=== PATIENT | female | born 1945 | race Caucasian/White ===

== ENCOUNTER 2017-11-21 06:22 | Day surgery (SDC) | payer MEDICARE, OTHER ==
[~2017-11-21] VITALS: Ht 162.6 cm; Wt 89.0 kg
[~2017-11-21 06:22] MED LIST: ACET325 PO; AMIO200 PO; ASCORBIC ACID500 MG PO; ASPI325 PO; ATOR40TA PO; Aspir 8181 MG PO; DRON400T; ELIQUIS2.5 MG PO; ENOX80I SC; FURO40 PO; LEVSOD50 PO; METO50 PO; POTCHL20ER PO; WARF3 PO; Zofran Odt8 MG SL
[2017-11-21] MEDS ORDERED: WARF6 PO (06:57)
[2017-11-21] MEDS ORDERED: DRON400T PO (07:32)
[2018-10-09] MEDS ORDERED: DIGOX250 MCG PO (11:26)
[2018-10-09] MEDS ORDERED: FURO40 PO (11:28)
[2018-10-09] MEDS ORDERED: K-Dur 20 meq T20 MEQ PO (11:30)
[2018-10-09] MEDS ORDERED: Ferrous Sulfat325 M2 PO (11:31)
== END 2017-11-21 08:40 | disposition home or self-care (01) ==
LOC: MHTC 06:22
PROC: 5A2204Z Restoration of Cardiac Rhythm, Single (ICD-10-PCS; principal; 2017-11-21)
DX: I48.4 Atypical atrial flutter (principal); I48.92 Unspecified atrial flutter; Z95.2 Presence of prosthetic heart valve; Z87.891 Personal history of nicotine dependence
CPT/HCPCS: 92960; 93005; 93010; J2250; J7030

== ENCOUNTER → 2018-04-04 | Outpatient (CLI) | payer MEDICARE, OTHER ==
[~2018-04-04] MED LIST changes: +DRON400T PO; +WARF6 PO
== END ==
LOC: LAB SHORT 13:35 → LAB EV 13:35
DX: R35.0 Frequency of micturition (principal)
CPT/HCPCS: 87077; 87086; 87186

== ENCOUNTER 2018-12-05 11:07 | Day surgery (SDC) | payer MEDICARE, OTHER ==
[~2018-12-05] VITALS: Ht 162.6 cm; Wt 88.0 kg
[~2018-12-05 11:07] MED LIST changes: +ASCO500 PO; +BISA5EC PO; +DIGOX250 MCG PO; +FERROUS SULFATE PO; +Ferrous Sulfat325 M2 PO; +K-Dur 20 meq T20 MEQ PO; +METO100ER PO; +MIRALAX17 GM; +WARF1 PO
--- NOTE | 2018-12-05 11:47 | NUR ---
History, Chart, Medications and Allergies reviewed before start of procedure. Lungs clear T/O to Auscultation. Patient confirms NPO status and agrees with scheduled surgery. Patient states colon prep results clear. Patient States Post-Procedure ride home has been arranged.
--- NOTE | 2018-12-05 12:09 | NUR ---
12/05/18 1209 Héctor Kaur 3-LEAD EKG REVIEWED WITH PHYSICIAN PRIOR TO START OF PROCEDURE.PATIENT CONFIRMS NPO STATUS AND AGREES WITH SCHEDULED PROCEDURE.History, Chart, Medications and Allergies reviewed before start of procedure. MONITOR INTACT WITH CONTINUOUS PULSE OXIMETRY AND INTERMITTENT BP. O2 VIA N/C INTACT THROUGHOUT SEDATION/PROCEDURE.
--- NOTE | 2018-12-05 13:46 | NUR ---
Discharge instructions reviewed with patient. Patient verbalizes understanding. Copy given to patient to take home. Discharged via wheelchair to private car for ride home.
== END 2018-12-05 13:40 | disposition home or self-care (01) ==
LOC: ORSCMMR 11:07 → SURS 11:07 → ORSCMMR 13:40 → ORD 14:00 → ORSCMMR 14:00
PROVIDERS: Internal Medicine Gastroenterology
PROC: 0DJD8ZZ Inspection of Lower Intestinal Tract, Via Natural or Artificial Opening Endoscopic (ICD-10-PCS; principal; 2018-12-05 12:00)
PROC: 0DBK8ZX Excision of Ascending Colon, Via Natural or Artificial Opening Endoscopic, Diagnostic (ICD-10-PCS; principal; 2018-12-05 12:00)
DX: D50.9 Iron deficiency anemia, unspecified (principal); D12.2 Benign neoplasm of ascending colon; K29.80 Duodenitis without bleeding; K29.70 Gastritis, unspecified, without bleeding; K57.30 Diverticulosis of large intestine without perforation or abscess without bleeding; E03.9 Hypothyroidism, unspecified; E78.5 Hyperlipidemia, unspecified; R13.10 Dysphagia, unspecified; K22.2 Esophageal obstruction; Z68.33 Body mass index [BMI] 33.0-33.9, adult; E66.9 Obesity, unspecified; Z79.899 Other long term (current) drug therapy; Z79.01 Long term (current) use of anticoagulants
CPT/HCPCS: 88305; J2405; J3010; J7120

== ENCOUNTER 2021-02-01 07:58 | Day surgery (SDC) | payer MEDICARE, OTHER ==
[~2021-02-01 07:58] MED LIST changes: -METO100ER PO; -WARF1 PO
--- NOTE | 2021-02-01 09:09 | NUR ---
DR KELLY IN ROOM TO CONSENT PT.
--- NOTE | 2021-02-01 10:03 | NUR ---
DR HARVEY IN ROOM TO SEE PT. CALL LIGHT IN REACH.
--- NOTE | 2021-02-01 10:33 | NUR ---
DISCHARGE INSTRUCTIONS REVIEWED ALL QUESTIONS ANSWERED. PT DRANK SIPS OF WATER WITH NO ASPIRATION.
--- NOTE | 2021-02-01 10:43 | NUR ---
20 G IV DISCONTINUED FROM RIGHT WRIST WITH INTACT CANNULA. PT ESCORTED OUT VIA WHEELCHAIR ESCORT.
== END 2021-02-01 22:52 | disposition home or self-care (01) ==
LOC: MHTC 07:58
DX: T82.01XA Breakdown (mechanical) of heart valve prosthesis, initial encounter (principal); T82.857A Stenosis of other cardiac prosthetic devices, implants and grafts, initial encounter; E78.5 Hyperlipidemia, unspecified; E03.9 Hypothyroidism, unspecified; R93.89 Abnormal findings on diagnostic imaging of other specified body structures; Z79.01 Long term (current) use of anticoagulants; Z88.8 Allergy status to other drugs, medicaments and biological substances; Y83.8 Other surgical procedures as the cause of abnormal reaction of the patient, or of later complication, without mention of misadventure at the time of the procedure; Z95.2 Presence of prosthetic heart valve
CPT/HCPCS: 76376; 93312; 93321; 93325; A9270; J2704; J7030

== ENCOUNTER 2021-03-29 06:47 | Day surgery (SDC) | payer MEDICARE, OTHER ==
[~2021-03-29] VITALS: Ht 162.6 cm; Wt 89.8 kg
--- NOTE | 2021-03-29 08:18 | NUR ---
DR MARTIN IN RECOVERY ROOM TO CONSULT WITH PT.
--- NOTE | 2021-03-29 09:27 | NUR ---
PT RETURNED TO RECOVERY ROOM IN RECLINER. RIGHT RADIAL TR BAND SITE SOFT WITH NO HEMATOMA, NO PULSATILE BLEEDING AND WRIST BOARD IN PLACE. PT DENIES CHEST PAIN. PT C/O RIGHT WRIST "SORENESS". SPO2 PROBE ON RIGHT INDEX FINGER WITH SPO2 AT 95%; CAP REFILL TO RIGHT FINGER < 3 SEC. CALL LIGHT IN REACH. PT DRINKING COFFEE.
--- NOTE | 2021-03-29 10:42 | NUR ---
0945 ASSUMED CARE OF PATIENT. TR BAND IN PLACE TO THE RIGHT RADIAL, STA MONITOR READING 97%. GOOD CAPILLARY REFILL. ALLOWED TO COME TO THE BEDSIDE. VVS. MONITOR IN USE. CALL LIGHT IN REACH. REFUSED BREAKFAST. GIVEN WATER ADN COFFEE.
--- NOTE | 2021-03-29 10:53 | NUR ---
DR MARTIN AT THE BEDSIDE AND SPOKE WITH THE AND REGARDING HER CATH RESULTS.
--- NOTE | 2021-03-29 11:05 | NUR ---
BEGAN TAKING AIR FROM THE TR BAND. CONTINUE TO MONITOR.
--- NOTE | 2021-03-29 11:13 | NUR ---
CONTINUE TO REMOVE AIR FROM THE TR BAND. VVS. AT THE BEDSIDE. VVS.
--- NOTE | 2021-03-29 11:42 | NUR ---
PATIENT UP OUT OF THE CHAIR TO THE RESTROOM. VOIDED AND BACK TO BED. OFF MONITOR AND ALLOWED TO DRESS. ASSISTING. PATIENT INSTRUCTED NOT TO USE THE RIGHT WRIST.
--- NOTE | 2021-03-29 12:29 | NUR ---
PATIENT IS BACK TO THE RECLINER, DRESSED SELF WITH HUSBANDS ASSISTANCE. PIV REMOVED AND PRESSURE DRESSING APPLIED. TR BAND REMOVED AND SITE CLEANED. REVIEWED DISCHARGE INSTRUCTIONS AND BANDAGE PLACED TO THE RIGHT RADIL SITE AND WHITE ARMBOARD RE-APPLIED. PATIENT VERBALIZES UNDERSTANDING OF NOT PLACING ANY ACCESSIVE PRESSURE TO THE RIGHT WRIST AREA. WILL WEAR THE ARMBOARD FOR 48 HOURS. COPIES OF DISCAHRGE INSTRUCTIONS GIVEN TO THE PATIENT AND A FOLLOW UP APPOINTMENT WITH DR. HARVEY. PATIENT VERBALIZED UNDERSTANDING OF INSTRUCTIONS. ALL BELONGINGS GATHERED AND PATIENT WHEELCHAIRED TO THE [facility] WHERE GOT THE CAR AND PATIENT DISCHARGED HOME.
== END 2021-03-29 12:30 | disposition home or self-care (01) ==
LOC: MHTC 06:47
DX: I05.9 Rheumatic mitral valve disease, unspecified (principal); I48.91 Unspecified atrial fibrillation; I35.0 Nonrheumatic aortic (valve) stenosis; E78.5 Hyperlipidemia, unspecified; E03.9 Hypothyroidism, unspecified; Z95.4 Presence of other heart-valve replacement
CPT/HCPCS: 76937; 93005; 93010; 93454; 99152; 99153; C1769; C1894; J1644; J2250; J3010; J7030; Q9967

== ENCOUNTER 2021-05-20 12:08 | Inpatient (IN) | payer MEDICARE, OTHER ==
[~2021-05-20] VITALS: Ht 162.6 cm; Wt 88.4 kg
[2021-05-20 13:55] LABS: BASOPHILS ABSOLUTE AUTO 0.03 K/mm3 (0.00-0.23); BASOPHILS PERCENT AUTO 0 % (0-2); EOSINOPHILS PERCENT AUTO 0 % (0-6); Hematocrit 35.7 % (33.0-51.0); Hemoglobin 11.9 g/dL (11.5-16.0); IMMATURE GRAN ABSOLUTE AUTO 0.13 K/mm3 (0.00-0.10); IMMATURE GRAN PERCENT AUTO 1 % (0-1); LYMPHOCYTES ABSOLUTE AUTO 0.27 K/mm3 (0.84-5.20); LYMPHOCYTES PERCENT AUTO 2 % (21-46); MONOCYTES ABSOLUTE AUTO 0.86 K/mm3 (0.16-1.47); MONOCYTES PERCENT AUTO 6 % (4-13); Mean Corpuscular HGB 36.6 pg (26.0-34.0); Mean Corpuscular HGB Conc 33.3 g/dL (31.5-36.5); Mean Corpuscular Volume 110 fL (80-100); Mean Platelet Volume 10.1 fL (9.1-12.4); NEUTROPHILS ABSOLUTE AUTO 13.97 K/mm3 (1.96-9.15); NEUTROPHILS PERCENT AUTO 92 % (41-73); Platelet Count 201 K/mm3 (150-400); RDW Standard Deviation 51.9 fL (35.1-46.3); Red Blood Cell Count 3.25 M/mm3 (3.80-5.20); White Blood Cell Count 15.26 K/mm3 (4.00-11.30)
[2021-05-20 14:46] LABS: Alanine Aminotransfer (ALT/SGP 28 U/L (12-78); Albumin, Blood 3.6 g/dL (3.4-5.0); Albumin/Globulin Ratio 0.9 (0.8-1.8); Alk Phos 103 U/L (50-136); Anion Gap 8 mmol/L (6-16); Aspartate Aminotrans (AST/SGOT 29 U/L (12-37); Bilirubin, Total 1.3 mg/dL (0.1-1.0); Blood Urea Nitrogen 13 mg/dL (8-24); Bun/Creatinine Ratio 13.4 (12.0-20.0); CO2, Blood 21 mmol/L (21-32); Calcium, Blood 9.3 mg/dL (8.5-10.1); Chloride, Blood 107 mmol/L (98-108); Creatinine, Blood 0.97 mg/dL (0.40-1.00); Globulin, Blood 3.9 g/dL (2.2-4.0); Glomerular Filtration Rate 56 (60-); Glucose, Blood 126 mg/dL (70-99); Potassium, Blood 4.2 mmol/L (3.5-5.5); Sodium, Blood 136 mmol/L (136-145); Thyroid Stimulating Hormone 0.383 uIU/mL (0.360-4.800); Total Protein, Blood 7.5 g/dL (6.4-8.2); Troponin I <0.015 ng/mL (0.000-0.040)
[2021-05-20 14:54] LABS: International Normalized Ratio 1.79; Prothrombin Time Results 18.7 Sec (9.7-11.5)
[2021-05-20 15:24] LABS: SARS-Cov-2 (COVID-19) PCR, MMC NEGATIVE (NEGATIVE)
[2021-05-20] MEDS ORDERED: LIPITOR80 MG PO (15:51)
[2021-05-20] MEDS ORDERED: EUTHYROX50 MCG PO (15:52)
[2021-05-20] MEDS ORDERED: METO50ER PO (15:52)
[2021-05-20] MEDS ORDERED: WARF3 PO (15:54)
[2021-05-20] MEDS ORDERED: Aspir 8181 MG PO (15:54)
[2021-05-20 18:29] LABS: International Normalized Ratio 1.82
[2021-05-20 18:50] LABS: Anion Gap 8 mmol/L (6-16); Blood Urea Nitrogen 13 mg/dL (8-24); Bun/Creatinine Ratio 15.3 (12.0-20.0); CO2, Blood 22 mmol/L (21-32); Calcium, Blood 8.8 mg/dL (8.5-10.1); Chloride, Blood 109 mmol/L (98-108); Creatinine, Blood 0.85 mg/dL (0.40-1.00); Glomerular Filtration Rate >60 (60-); Glucose, Blood 123 mg/dL (70-99); Potassium, Blood 4.5 mmol/L (3.5-5.5); Sodium, Blood 139 mmol/L (136-145)
--- NOTE | 2021-05-20 19:38 | NUR ---
SUMMARY PT SITTING ON EDGE OF BED, REPORTS "FEELING MUCH BETTER". ARRIVED TO UNIT FROM ED, TRANSFERRED W/SBA TO BED FROM [facility]. TACHYPNIC UPON ARRIVAL AND 02 SATS WERE IN 80S. PLACED ON 2L NC, SATS IMPROVED TO MID 90S. PT BEGAN HAVING INCREASING SOB, STATING "I CAN'T BREATHE" ALTHOUGH SATS WERE IN 90S. LUNGS SOUNDED DIM AND HR 145. OBTAINED ORDERS AND JEFFREY Kolb RN. ADMINISTERED METOPROLOL AND LASIX PER ORDERS. PT DOES REPORT HAD FALL "A FEW WEEKS AGO". EDUCATED ON IMPORTANCE OF CALLING BEFORE GETTING UP TO MAINTAIN SAFETY. VERBALIZED UNDERSTANDING. CALL LIGHT IN REACH. REPORT GIVEN TO ONCOMING SHIFT.
--- NOTE | 2021-05-21 01:02 | NUR ---
PATIENT ALERT AND ORIENTED X4. TERRI IN ROOM WITH PATIENT AT BEGINNING OF SHIFT. HR A.FIB IN THE 130s @1920, METOPROLOL AND LASIX WAS GIVEN @1855, PT WAS A.FIB 90s-110 FOR ABOUT 30 MINUTES @1940, THEN RETURNED TO A.FIB 130s-140s. FIRST DOSE OF DIGOXIN WAS GIVEN AND PO METOPROLOL, SEE EMAR. @2250- PT STARTED DRY HEAVING, MEDICATED WITH ZOFRAN. PT STATES SHE FEELS "THE WORST SHE HAS EVER FELT IN HER LIFE". CALLED HOSPITALIST AND AND GAVE ANOTHER DOSE OF METOPROLOL. NO CHANGES IN HR. OXYGEN REQUIREMENTS INCREASED FROM 2L VIA NC TO 3-4L, SATS >90%. @0020-CALLED DR. VAZQUEZ REGARDING HR, ORDERS TO TRANSFER TO ICU AND START ESMOLOL. @0048- REPORT GIVEN TO MALLORY WILEY. PT TRANSFERRED TO ICU. CALLED TERRI AND LEFT A MESSAGE.
--- NOTE | 2021-05-21 01:30 | NUR ---
0050- PT TRANSFERRED TO ICU 01 VIA BED WITH 2 RN'S AT BEDSIDE. PT VERY DYSPNEIC WITH RR 30'S-40'S. DENIES ANY CHEST PAIN. C/O HAVING LOWER BACK PAIN. LS VERY DIMINISHED T/O WITH VERY SHALLOW BREATHING. BIOX 94% ON 4L N/C. HEART SOUNDS S1 AND S2 AUSCULTATED WITH MONIOTR SHOWING AFLUTTER WITH HR 140. 20G IV LFA VERY PAINFUL WHEN FLUSHED; IV D/C'D. IV JEFFERY S/L. NEW IV RFA 20G STATRTED WITH ESMOLOL STARTED AT 50MCG/KG/MIN. 1+ PITTING EDEMA IN BILAT LE'S; R MORE PAINFUL THAN L. SKIN PALE, COOL AND DRY. TEMP 99.6. 0130- ESMOLOL INCREASED TO 100MCG/KG/MIN.
[2021-05-21 04:09] LABS: BASOPHILS ABSOLUTE AUTO 0.03 K/mm3 (0.00-0.23); BASOPHILS PERCENT AUTO 0 % (0-2); EOSINOPHILS PERCENT AUTO 0 % (0-6); Hemoglobin 10.1 g/dL (11.5-16.0); IMMATURE GRAN ABSOLUTE AUTO 0.18 K/mm3 (0.00-0.10); IMMATURE GRAN PERCENT AUTO 1 % (0-1); LYMPHOCYTES ABSOLUTE AUTO 0.39 K/mm3 (0.84-5.20); LYMPHOCYTES PERCENT AUTO 3 % (21-46); MONOCYTES ABSOLUTE AUTO 0.44 K/mm3 (0.16-1.47); MONOCYTES PERCENT AUTO 3 % (4-13); Mean Corpuscular HGB 35.1 pg (26.0-34.0); Mean Corpuscular HGB Conc 32.6 g/dL (31.5-36.5); Mean Corpuscular Volume 108 fL (80-100); NEUTROPHILS ABSOLUTE AUTO 13.27 K/mm3 (1.96-9.15); NEUTROPHILS PERCENT AUTO 93 % (41-73); Platelet Count 151 K/mm3 (150-400); RDW Coefficient Variation 13.1 % (11.7-14.2); RDW Standard Deviation 51.6 fL (35.1-46.3); Red Blood Cell Count 2.88 M/mm3 (3.80-5.20); White Blood Cell Count 14.31 K/mm3 (4.00-11.30)
[2021-05-21 04:24] LABS: International Normalized Ratio 2.14
[2021-05-21 04:38] LABS: Albumin, Blood 3.1 g/dL (3.4-5.0); Albumin/Globulin Ratio 0.9 (0.8-1.8); Bun/Creatinine Ratio 13.2 (12.0-20.0); Calcium, Blood 8.1 mg/dL (8.5-10.1); Creatinine, Blood 1.29 mg/dL (0.40-1.00); Globulin, Blood 3.4 g/dL (2.2-4.0); Potassium, Blood 4.1 mmol/L (3.5-5.5); Total Protein, Blood 6.5 g/dL (6.4-8.2)
[2021-05-21 04:56] LABS: Prothrombin Time Results 22.1 Sec (9.7-11.5)
--- NOTE | 2021-05-21 10:00 | NUR ---
[place] of Care/KIM/Cardioversion: Care assumed at 0700hr. Patient alert and oriented x4, sitting up in bed with at bedside. Patient denies any pain/discomfort. VSS, spO2-985 on 4L/NC. Patient denies dyspnea/SOB, but appears SOB while talking, comfortable at rest. Heart rhythm shows A-flutter with 2:1 conduction, BP stable. Esmolol gtt placed on stand-by on NOC shift. Peripheral IV's x2 patent and intact. At approx 0830hr, patient heart rhythm converted to A-fibb RVR. Patient also became increased in SOB, and c/o rt chest pain 01/13, BP remained stable. EKG obtained and call placed to Dr. Jackson, who quickly came to bedside. Dr. Jackson then instructed to continue with/set-up for KIM and cardioversion. RT Wily and apartment maintenance technician Barbara to bedside along with this RN and Aury sam RN. Time out called at 0850. Per Dr. Jackson, 1mg Versed, 50mcg Fentanyl given at 0856. KIM probe passed at 0900hr, scope removed at 0911hr, patient tolerated KIM without difficulty. Then instructed to proceed with electrical cardioversion. 1mg versed, 25mcg fentanyl given at 0913. Synchronized 200j cardioversion given at 0914. Patient then had 6 second pause, followed by sinus rhythm in the 70's, BP stable. Patient continued to sleep after the procedure, for approx 1hr. Patient now awake/alert, and denies any chest pain/discomfort. Respirations decreased and now appears comfortable at rest. Received plan from Dr. Jackson to transfer patient to [facility], for concern for vegetation on her mitral valvle. Awaiting bed assignment at [facility] at this time. Will continue to monitor.
--- NOTE | 2021-05-21 13:04 | NUR ---
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 AG, PT WILL MOST LIKELY BE TRANSFERRED TO [place] BY CARDIOLOGY. SHE WILL MAKE HERSELF AVAILABLE TO HELP WITH THAT TRANSFER IF NEEDED. -BALTA
--- NOTE | 2021-05-21 17:59 | NUR ---
Shift Summary: See "[place]" note r/t KIM and cardioversion. Patient remained stable throughout remainder of shift. Heart rhythm remains NSR in the 70's, BP stable. Patient remains asymptomatic, denies chest pain or dyspnea/SOB. C/o headache effectively managed with prn tylenol. Peripheral IV's x2 remain patent and intact. Up to toilet in room to void without difficulty. Contacted [facility] this afternoon, informed there are still no beds available, but that patient is top priority for transfer. Spoke with Dr. Jakcson to inform him of call to transfer center, plan to continue to hold/treat patient at this facility until bed becomes available. Spoke with Dr. Waldron this afternoon, received new orders for repeat blood cultures, and vanco (per pharmacy) r/t treatment of endocarditis. at bedside. Patient calm and states to be comfortable. Will continue to monitor until report to NOC shift RN.
--- NOTE | 2021-05-22 04:55 | NUR ---
SHIFT SUMMARY PATIENT HAS SLEPT WELL THRU NIGHT. HAS COMPLAINED A COUPLE TIMES OF "STOMACH UPSET," AT FIRST DESCRIBED NAUSEA WITHOUT ANY PAIN IN HER LOWED ABDOMEN, ALMOST LIKE STOMACH WAS TURNING OVER, ALMOST NEEDING TO VOMIT, RELIEVED WITH ZOFRAN, SITTING UP, AND GUIDED BREATHING EXERCISES. LATER ON PT DESCRIBED DULL PAIN IN LOWER ABDOMEN, ALMOST TO PELVIS, RELIEVED WITH FENTANYL. NO FURTHER COMPLAINTS. VSS. ASSESSMENT IS CHARTED. WILL CONTINUE TO MONITOR.
[2021-05-22 06:17] LABS: International Normalized Ratio 3.4; Prothrombin Time Results 34.3 Sec (9.7-11.5)
[2021-05-22 06:28] LABS: Vancomycin, Trough 13.9 ug/mL (5.0-10.0)
--- NOTE | 2021-05-22 07:58 | NUR ---
AM NOTE... ASSUMED CARE OF PT AT 0700. PT IS A&Ox4 AND SBA IN THE ROOM. PT WAS ADMITTED FOR AFIB W/RVR AND FOUND TO HAVE POSSIBLE VEGITATION AND ENDOCARDITIS. PT ALSO HAS POSITIVE BLOOD CULTURES OF GM + COCCI IN CHAINS ON THE SECOND SET OF BLOOD CULTURES AND DIPLOCOCCI ON THE FIRST SET. PT DENIES ANY CHEST PAIN/PRESSURE. PT IS IN NSR IN THE 60'S. BP SOFT BUT STABLE. PT IS ON 2L NC WITH O2 SATS >94%, PT BECOMES SLIGHTLY DYSPNIC WITH ACTIVITY. PT HAS 1+ PITTING EDEMA TO HER BLE. L/S CLEAR T/O. RR EVEN AND UNLABORED WHILE RESTING. PT IS CONT OF URINE AND STOOL AND A SBA TO THE BCS/TOILET. PT HAS COBRA TRANSFER TO [facility] PENDING AN AVAILABLE BED. DR. HART CLIP LOADING MACHINE FEEDER AT THE BEDSIDE FOR ASSESSMENT. PLAN OF CARE IS TO CONTINUE THE IV ANTIBIOTICS AND WAIT FOR TRANSFER. CALL LIGHT IN REACH WILL CONTINUE TO MONITOR.
[2021-05-22 08:33] LABS: Hematocrit 27.9 % (33.0-51.0); Hemoglobin 9.4 g/dL (11.5-16.0); Mean Corpuscular HGB 37.6 pg (26.0-34.0); Mean Corpuscular HGB Conc 33.7 g/dL (31.5-36.5); Mean Corpuscular Volume 112 fL (80-100); Platelet Count 113 K/mm3 (150-400); RDW Standard Deviation 51.4 fL (35.1-46.3); White Blood Cell Count 8.31 K/mm3 (4.00-11.30)
[2021-05-22 08:43] LABS: Albumin, Blood 2.9 g/dL (3.4-5.0); Albumin/Globulin Ratio 0.8 (0.8-1.8); Bilirubin, Total 0.6 mg/dL (0.1-1.0); Calcium, Blood 8.2 mg/dL (8.5-10.1); Creatinine, Blood 1.2 mg/dL (0.40-1.00); Globulin, Blood 3.7 g/dL (2.2-4.0); Potassium, Blood 4.4 mmol/L (3.5-5.5); Total Protein, Blood 6.6 g/dL (6.4-8.2)
[2021-05-22 08:53] LABS: BAND PERCENT MAN 5 % (0-8); BASOPHILS ABSOLUTE MAN 0.08 K/mm3 (0.00-0.23); BASOPHILS PERCENT MAN 1 % (0-2); EOSINOPHILS PERCENT MAN 0 % (0-6); LYMPHOCYTES ABSOLUTE MAN 0.83 K/mm3 (0.84-5.20); LYMPHOCYTES PERCENT MAN 10 % (21-46); MONOCYTES ABSOLUTE MAN 0.41 K/mm3 (0.16-1.47); MONOCYTES PERCENT MAN 5 % (4-13); NEUTROPHILS ABSOLUTE MAN 6.98 K/mm3 (1.96-9.15); SEG NEUTROPHILS PERCENT MAN 79 % (41-73); TOTAL CELLS COUNTED 100
--- NOTE | 2021-05-22 13:03 | NUR ---
PT UPDATE/TRANSFER... PT IS TRANSFERING TO [facility]. REPORT WAS CALLED TO BLUE [facility]LEY. PT IS TO GO BY AMBULANCE. ALL OF PT'S BELONGINGS WERE TAKEN BY THE PT'S TERRI. PT'S VS STABLE AT THIS TIME. PT DENIES ANY CHEST PAIN/PRESSURE N/V OR SOB. PT IS IN NSR IN THE 60'S. WILL CONTINUE TO MONITOR UNTIL PT LEAVES THE UNIT.
== END 2021-05-22 13:15 | disposition short-term general hospital (02) | DRG 308 ==
LOC: ER 12:08 → PCU 12:09 → ICUE 16:36 → PCU 17:38 → ICUE 05-21 00:48
PROVIDERS: Emergency Medicine; Family Medicine; Internal Medicine Cardiovascular Disease; Internal Medicine Gastroenterology; ADMIT Family Medicine
PROC: 5A2204Z Restoration of Cardiac Rhythm, Single (ICD-10-PCS; principal; 2021-05-21)
DX: I48.91 Unspecified atrial fibrillation (principal); I33.0 Acute and subacute infective endocarditis; T82.6XXA Infection and inflammatory reaction due to cardiac valve prosthesis, initial encounter; R78.81 Bacteremia; I48.92 Unspecified atrial flutter; I44.7 Left bundle-branch block, unspecified; Z20.822 Contact with and (suspected) exposure to COVID-19; B95.5 Unspecified streptococcus as the cause of diseases classified elsewhere; I10 Essential (primary) hypertension; E03.9 Hypothyroidism, unspecified; I07.1 Rheumatic tricuspid insufficiency; Z95.3 Presence of xenogenic heart valve; Z88.8 Allergy status to other drugs, medicaments and biological substances; Z79.899 Other long term (current) drug therapy; Z79.01 Long term (current) use of anticoagulants; Z87.891 Personal history of nicotine dependence
CPT/HCPCS: 36415; 71045; 80048; 80053; 80202; 83605; 83735; 83880; 84443; 84484; 85025; 85610; 87040; 87077; 87186; 92960; 93005; 93010; 93312; 93325; 94660; 94762; 96374; 96375; 99285-25; A9270; J0153; J0696; J1160; J1650; J1940; J2250; J2405; J3010; J3370; J7030; J7050; U0004

== ENCOUNTER 2021-06-03 02:03 | Day surgery (SDC) | payer MEDICARE, OTHER ==
[~2021-06-03 02:03] MED LIST changes: +EUTHYROX50 MCG PO; +LIPITOR80 MG PO; +METO50ER PO
[2021-06-03] MEDS ORDERED: FUROSEMIDE20 MG PO (11:31)
[2021-06-03] MEDS ORDERED: CEFTRIAXONE2 G7 (11:32)
[2021-06-03] MEDS ORDERED: Ampicillin Sodiu2 G1 IV (11:32)
[2021-06-03 12:03] LABS: Hematocrit 27.2 % (33.0-51.0); Hemoglobin 8.8 g/dL (11.5-16.0); Mean Corpuscular HGB 33.7 pg (26.0-34.0); Mean Corpuscular HGB Conc 32.4 g/dL (31.5-36.5); Mean Corpuscular Volume 104 fL (80-100); Mean Platelet Volume 9.5 fL (9.1-12.4); Platelet Count 273 K/mm3 (150-400); RDW Coefficient Variation 13.3 % (11.7-14.2); Red Blood Cell Count 2.61 M/mm3 (3.80-5.20); White Blood Cell Count 5.57 K/mm3 (4.00-11.30)
[2021-06-03 12:14] LABS: Alanine Aminotransfer (ALT/SGP 15 U/L (12-78); Albumin, Blood 2.8 g/dL (3.4-5.0); Albumin/Globulin Ratio 0.7 (0.8-1.8); Alk Phos 108 U/L (50-136); Anion Gap 6 mmol/L (6-16); Aspartate Aminotrans (AST/SGOT 21 U/L (12-37); Bilirubin, Total 0.5 mg/dL (0.1-1.0); Blood Urea Nitrogen 9 mg/dL (8-24); Bun/Creatinine Ratio 10.5 (12.0-20.0); CO2, Blood 25 mmol/L (21-32); Calcium, Blood 9.1 mg/dL (8.5-10.1); Chloride, Blood 108 mmol/L (98-108); Creatinine, Blood 0.86 mg/dL (0.40-1.00); Globulin, Blood 4.2 g/dL (2.2-4.0); Glomerular Filtration Rate >60 (60-); Glucose, Blood 98 mg/dL (70-99); Potassium, Blood 3.4 mmol/L (3.5-5.5); Sodium, Blood 139 mmol/L (136-145)
== END 2021-06-03 11:36 | disposition home or self-care (01) ==
LOC: ATC 02:03
PROVIDERS: Hospitalist
DX: R78.81 Bacteremia (principal); B95.2 Enterococcus as the cause of diseases classified elsewhere
CPT/HCPCS: 36592; 80053; 85027

== ENCOUNTER 2021-06-10 02:11 | Day surgery (SDC) | payer MEDICARE, OTHER ==
[~2021-06-10 02:11] MED LIST changes: +Ampicillin Sodiu2 G1 IV; +CEFTRIAXONE2 G7; +FUROSEMIDE20 MG PO
[2021-06-10 12:33] LABS: BASOPHILS ABSOLUTE AUTO 0.06 K/mm3 (0.00-0.23); BASOPHILS PERCENT AUTO 1 % (0-2); EOSINOPHILS ABSOLUTE AUTO 0.16 K/mm3 (0.00-0.68); EOSINOPHILS PERCENT AUTO 3 % (0-6); Hematocrit 27.1 % (33.0-51.0); Hemoglobin 8.8 g/dL (11.5-16.0); IMMATURE GRAN ABSOLUTE AUTO 0.02 K/mm3 (0.00-0.10); IMMATURE GRAN PERCENT AUTO 0 % (0-1); LYMPHOCYTES ABSOLUTE AUTO 0.95 K/mm3 (0.84-5.20); LYMPHOCYTES PERCENT AUTO 19 % (21-46); MONOCYTES ABSOLUTE AUTO 0.57 K/mm3 (0.16-1.47); MONOCYTES PERCENT AUTO 12 % (4-13); Mean Corpuscular HGB 34.4 pg (26.0-34.0); Mean Corpuscular HGB Conc 32.5 g/dL (31.5-36.5); Mean Corpuscular Volume 106 fL (80-100); Mean Platelet Volume 9.5 fL (9.1-12.4); NEUTROPHILS ABSOLUTE AUTO 3.15 K/mm3 (1.96-9.15); NEUTROPHILS PERCENT AUTO 64 % (41-73); Platelet Count 251 K/mm3 (150-400); RDW Coefficient Variation 13.8 % (11.7-14.2); RDW Standard Deviation 51.8 fL (35.1-46.3); Red Blood Cell Count 2.56 M/mm3 (3.80-5.20); White Blood Cell Count 4.91 K/mm3 (4.00-11.30)
[2021-06-10 13:16] LABS: Albumin, Blood 2.8 g/dL (3.4-5.0); Albumin/Globulin Ratio 0.6 (0.8-1.8); Bilirubin, Total 0.3 mg/dL (0.1-1.0); Bun/Creatinine Ratio 10.3 (12.0-20.0); Calcium, Blood 9.3 mg/dL (8.5-10.1); Creatinine, Blood 0.97 mg/dL (0.40-1.00); Globulin, Blood 4.5 g/dL (2.2-4.0); Potassium, Blood 3.8 mmol/L (3.5-5.5); Total Protein, Blood 7.3 g/dL (6.4-8.2)
== END 2021-06-10 11:55 | disposition home or self-care (01) ==
LOC: ATC 02:11
DX: R78.81 Bacteremia (principal); B95.2 Enterococcus as the cause of diseases classified elsewhere; I33.0 Acute and subacute infective endocarditis; Z95.2 Presence of prosthetic heart valve; Z88.8 Allergy status to other drugs, medicaments and biological substances; Z91.048 Other nonmedicinal substance allergy status; Z95.828 Presence of other vascular implants and grafts
CPT/HCPCS: 36592; 80053; 85025

== ENCOUNTER 2021-06-17 07:25 | Day surgery (SDC) | payer MEDICARE, OTHER ==
[2021-06-17 12:33] LABS: BASOPHILS ABSOLUTE AUTO 0.04 K/mm3 (0.00-0.23); BASOPHILS PERCENT AUTO 1 % (0-2); EOSINOPHILS PERCENT AUTO 7 % (0-6); Hematocrit 27.1 % (33.0-51.0); Hemoglobin 8.6 g/dL (11.5-16.0); IMMATURE GRAN ABSOLUTE AUTO 0.01 K/mm3 (0.00-0.10); IMMATURE GRAN PERCENT AUTO 0 % (0-1); LYMPHOCYTES ABSOLUTE AUTO 0.75 K/mm3 (0.84-5.20); LYMPHOCYTES PERCENT AUTO 16 % (21-46); MONOCYTES ABSOLUTE AUTO 0.58 K/mm3 (0.16-1.47); MONOCYTES PERCENT AUTO 13 % (4-13); Mean Corpuscular HGB 33.1 pg (26.0-34.0); Mean Corpuscular HGB Conc 31.7 g/dL (31.5-36.5); Mean Corpuscular Volume 104 fL (80-100); Mean Platelet Volume 9.9 fL (9.1-12.4); NEUTROPHILS ABSOLUTE AUTO 2.89 K/mm3 (1.96-9.15); NEUTROPHILS PERCENT AUTO 63 % (41-73); Platelet Count 217 K/mm3 (150-400); RDW Standard Deviation 52.7 fL (35.1-46.3); White Blood Cell Count 4.57 K/mm3 (4.00-11.30)
[2021-06-17 12:55] LABS: Albumin/Globulin Ratio 0.8 (0.8-1.8); Bilirubin, Total 0.5 mg/dL (0.1-1.0); Calcium, Blood 9.1 mg/dL (8.5-10.1); Creatinine, Blood 0.93 mg/dL (0.40-1.00); Potassium, Blood 3.6 mmol/L (3.5-5.5)
== END 2021-06-17 11:55 | disposition home or self-care (01) ==
LOC: ATC 07:25
PROVIDERS: Hospitalist
DX: R78.81 Bacteremia (principal); B95.2 Enterococcus as the cause of diseases classified elsewhere; I33.0 Acute and subacute infective endocarditis; I48.91 Unspecified atrial fibrillation; Z95.2 Presence of prosthetic heart valve; Z91.048 Other nonmedicinal substance allergy status; Z45.2 Encounter for adjustment and management of vascular access device
CPT/HCPCS: 36592; 80053; 85025

== ENCOUNTER 2021-06-24 04:00 | Day surgery (SDC) | payer MEDICARE, OTHER ==
[2021-06-24 12:10] LABS: Hematocrit 27.9 % (33.0-51.0); Mean Corpuscular HGB Conc 32.3 g/dL (31.5-36.5); Mean Corpuscular Volume 105 fL (80-100); Mean Platelet Volume 9.8 fL (9.1-12.4); Platelet Count 195 K/mm3 (150-400); RDW Coefficient Variation 14.1 % (11.7-14.2); RDW Standard Deviation 53.7 fL (35.1-46.3); Red Blood Cell Count 2.65 M/mm3 (3.80-5.20); White Blood Cell Count 3.62 K/mm3 (4.00-11.30)
[2021-06-24 12:26] LABS: Albumin/Globulin Ratio 0.7 (0.8-1.8); Bilirubin, Total 0.5 mg/dL (0.1-1.0); Bun/Creatinine Ratio 12.8 (12.0-20.0); Calcium, Blood 9.1 mg/dL (8.5-10.1); Creatinine, Blood 0.94 mg/dL (0.40-1.00); Globulin, Blood 4.2 g/dL (2.2-4.0); Potassium, Blood 3.7 mmol/L (3.5-5.5); Total Protein, Blood 7.2 g/dL (6.4-8.2)
[2021-06-24 12:29] LABS: International Normalized Ratio 1.53; Prothrombin Time Results 16.1 Sec (9.7-11.5)
== END 2021-06-24 11:55 | disposition home or self-care (01) ==
LOC: ATC 04:00
PROVIDERS: Hospitalist; Internal Medicine Cardiovascular Disease
DX: I33.0 Acute and subacute infective endocarditis (principal); B95.2 Enterococcus as the cause of diseases classified elsewhere; I48.20 Chronic atrial fibrillation, unspecified; I10 Essential (primary) hypertension; E03.9 Hypothyroidism, unspecified; Z95.2 Presence of prosthetic heart valve; Z87.891 Personal history of nicotine dependence; Z79.01 Long term (current) use of anticoagulants
CPT/HCPCS: 36592; 80053; 85027; 85610

== ENCOUNTER 2021-07-01 00:55 | Day surgery (SDC) | payer MEDICARE, OTHER ==
[2021-07-01 12:05] LABS: BASOPHILS ABSOLUTE AUTO 0.03 K/mm3 (0.00-0.23); BASOPHILS PERCENT AUTO 1 % (0-2); EOSINOPHILS ABSOLUTE AUTO 0.19 K/mm3 (0.00-0.68); EOSINOPHILS PERCENT AUTO 5 % (0-6); Hematocrit 28.9 % (33.0-51.0); IMMATURE GRAN ABSOLUTE AUTO 0.02 K/mm3 (0.00-0.10); IMMATURE GRAN PERCENT AUTO 1 % (0-1); LYMPHOCYTES ABSOLUTE AUTO 0.82 K/mm3 (0.84-5.20); LYMPHOCYTES PERCENT AUTO 20 % (21-46); MONOCYTES ABSOLUTE AUTO 0.54 K/mm3 (0.16-1.47); MONOCYTES PERCENT AUTO 13 % (4-13); Mean Corpuscular HGB Conc 31.1 g/dL (31.5-36.5); Mean Corpuscular Volume 103 fL (80-100); Mean Platelet Volume 9.6 fL (9.1-12.4); NEUTROPHILS ABSOLUTE AUTO 2.42 K/mm3 (1.96-9.15); NEUTROPHILS PERCENT AUTO 60 % (41-73); Platelet Count 188 K/mm3 (150-400); RDW Coefficient Variation 13.9 % (11.7-14.2); RDW Standard Deviation 52.6 fL (35.1-46.3); Red Blood Cell Count 2.81 M/mm3 (3.80-5.20); White Blood Cell Count 4.02 K/mm3 (4.00-11.30)
[2021-07-01 12:26] LABS: Albumin/Globulin Ratio 0.8 (0.8-1.8); Bilirubin, Total 0.4 mg/dL (0.1-1.0); Calcium, Blood 9.3 mg/dL (8.5-10.1); Creatinine, Blood 0.92 mg/dL (0.40-1.00); Potassium, Blood 3.8 mmol/L (3.5-5.5)
[2021-07-01 12:27] LABS: International Normalized Ratio 1.92
--- NOTE | 2021-07-01 17:31 | NUR ---
TODAYS LABS FAXED TO DR. ANAND AND MAKENZIE HALL.
== END 2021-07-01 11:56 | disposition home or self-care (01) ==
LOC: ATC 00:55
PROVIDERS: Hospitalist; Internal Medicine Cardiovascular Disease
DX: I33.0 Acute and subacute infective endocarditis (principal); R78.81 Bacteremia; B95.2 Enterococcus as the cause of diseases classified elsewhere; I48.20 Chronic atrial fibrillation, unspecified; I10 Essential (primary) hypertension; E03.9 Hypothyroidism, unspecified; Z95.2 Presence of prosthetic heart valve; Z87.891 Personal history of nicotine dependence; Z88.8 Allergy status to other drugs, medicaments and biological substances; Z91.048 Other nonmedicinal substance allergy status; Z79.01 Long term (current) use of anticoagulants
CPT/HCPCS: 36592; 80053; 85025; 85610

== ENCOUNTER 2021-07-26 09:45 | Day surgery (SDC) | payer MEDICARE, OTHER | END 2021-07-26 14:05 | disposition home or self-care (01) | LOC: ATC 09:45 | DX: I48.91 Unspecified atrial fibrillation (principal); I10 Essential (primary) hypertension; E03.9 Hypothyroidism, unspecified; Z87.891 Personal history of nicotine dependence; Z88.8 Allergy status to other drugs, medicaments and biological substances; Z79.01 Long term (current) use of anticoagulants; Z79.899 Other long term (current) drug therapy | CPT/HCPCS: 99211 ==

== ENCOUNTER 2022-07-12 20:24 | Inpatient (IN) | payer MEDICARE ==
[~2022-07-12] VITALS: Ht 162.6 cm; Wt 85.4 kg
[2022-07-12 20:59] LABS: BASOPHILS ABSOLUTE AUTO 0.03 K/mm3 (0.00-0.23); BASOPHILS PERCENT AUTO 1 % (0-2); EOSINOPHILS ABSOLUTE AUTO 0.12 K/mm3 (0.00-0.68); EOSINOPHILS PERCENT AUTO 2 % (0-6); Hematocrit 38.1 % (33.0-51.0); Hemoglobin 13.1 g/dL (11.5-16.0); IMMATURE GRAN ABSOLUTE AUTO 0.02 K/mm3 (0.00-0.10); IMMATURE GRAN PERCENT AUTO 0 % (0-1); LYMPHOCYTES ABSOLUTE AUTO 1.43 K/mm3 (0.84-5.20); LYMPHOCYTES PERCENT AUTO 27 % (21-46); MONOCYTES PERCENT AUTO 13 % (4-13); Mean Corpuscular HGB 36.8 pg (26.0-34.0); Mean Corpuscular HGB Conc 34.4 g/dL (31.5-36.5); Mean Corpuscular Volume 107 fL (80-100); Mean Platelet Volume 9.8 fL (9.1-12.4); NEUTROPHILS ABSOLUTE AUTO 2.95 K/mm3 (1.96-9.15); NEUTROPHILS PERCENT AUTO 56 % (41-73); Platelet Count 199 K/mm3 (150-400); RDW Coefficient Variation 13.1 % (11.7-14.2); RDW Standard Deviation 50.7 fL (35.1-46.3); Red Blood Cell Count 3.56 M/mm3 (3.80-5.20); White Blood Cell Count 5.25 K/mm3 (4.00-11.30)
[2022-07-12 21:00] LABS: Calcium, Ionized (POC) 1.21 mmol/L (1.10-1.46); Chloride (POC) 106 mmol/L (98-108); Creatinine (POC) 1.1 mg/dL (0.6-1.0); Glucose (ISTAT POC) 119 mg/dL (70-99); Hemoglobin (POC) 12.2 g/dL (12.0-16.0); Potassium (POC) 3.8 mmol/L (3.5-5.5); Sodium (POC) 140 mmol/L (135-148); Total CO2 (POC) 21 mmol/L (21-32)
[2022-07-12 21:13] LABS: International Normalized Ratio 1.82; Prothrombin Time Results 18.4 Sec (9.7-11.5)
[2022-07-12 21:16] LABS: Albumin, Blood 4.1 g/dL (3.4-5.0); Albumin/Globulin Ratio 1.2 (0.8-1.8); Bilirubin, Total 1.1 mg/dL (0.1-1.0); Bun/Creatinine Ratio 13.5 (12.0-20.0); Creatinine, Blood 1.11 mg/dL (0.40-1.00); Globulin, Blood 3.5 g/dL (2.2-4.0); Potassium, Blood 4.1 mmol/L (3.5-5.5); Total Protein, Blood 7.6 g/dL (6.4-8.2)
[2022-07-13 06:21] LABS: Anion Gap 7 mmol/L (6-16); Blood Urea Nitrogen 21 mg/dL (8-24); Bun/Creatinine Ratio 21.2 (12.0-20.0); CO2, Blood 24 mmol/L (21-32); Calcium, Blood 9.6 mg/dL (8.5-10.1); Chloride, Blood 109 mmol/L (98-108); Cholesterol 169 mg/dL (50-200); Creatinine, Blood 0.99 mg/dL (0.40-1.00); Glomerular Filtration Rate 59 (60-); Glucose, Blood 112 mg/dL (70-99); HDL Cholesterol 56 mg/dL (>39); LDL/HDL RATIO 1.7; Low Density Lipoprotein Chol 93 mg/dL (0-110); Potassium, Blood 4.5 mmol/L (3.5-5.5); Sodium, Blood 140 mmol/L (136-145); Triglycerides 99 mg/dL (30-160); Very Low Density Lipoprot Chol 19 mg/dL (6-32)
--- NOTE | 2022-07-13 06:39 | NUR ---
Summary. Pt arrived to ICU at approximately 2313 from component lab tech. Bedside report received from component lab tech RN. Pt A&O x4, on room air, VS stable. R/femoral femstop in place, some dried blood noted around insertion site/groin. No new bleeding noted, no swelling/pain/ecchymosis. IV access in L/ac and L/wrist. NS started at 125 mls/hr. at bedside for initial admission. Dr. Bradley came to bedside for site evaluation, discussed femstop removal and order for additional PT to be added to morning labs, EKG reviewed. Femstop pressure slowly decreased from 0230 to 0545 when device was removed. Site remained WNL during shift, tibial/pedal pulses present at every check, no pain/numbness/tingling reported by patient. R/leg slightly swollen/tight to the touch, continue to monitor. Physical reassessment unremarkable, pt rested comfortably during shift. Up to bedside commode after device removal, 500 mls urine voided. VS remain stable, report given to dayshift RN.
[2022-07-13 07:21] LABS: International Normalized Ratio 1.9; Prothrombin Time Results 19.1 Sec (9.7-11.5)
--- NOTE | 2022-07-13 07:30 | NUR ---
ASSUMED CARE: PT RESTING IN BED, AWAKE DURING BEDSIDE REPORT. NSR WITH BBB IN THE 80S. DENIES CHEST PAIN. RIGHT GROIN SITE WITH OLD BLOOD ON DRESSING BUT NO EVIDENCE OF NEW BLEEDING. DENIES NEEDS OR CONCERNS AT THIS TIME.
--- NOTE | 2022-07-13 09:00 | NUR ---
DR LUNA CALLED TO CHECK IN ON PT. WILL BE HERE TO EVALUATE PT AND DETERMINE FURTHER PLANS. PT MADE AWARE
--- NOTE | 2022-07-13 09:37 | NUR ---
FOAMING MACHINE OPERATOR AT BEDSIDE.
[2022-07-13 10:46] LABS: Creatine Kinase MB 135.3 ng/mL (0.0-3.6); Creatine Kinase MB Index 9.3 (0.0-4.0)
--- NOTE | 2022-07-13 10:52 | NUR ---
DR LUNA CAME TO SEE PT AND DISCUSSED HER CASE WITH DR LNUA AND DR MARTIN. DR STATES HE WILL WRITE DC ORDERS AND WANTS PT TO AMBULATE IN THE MEANTIME. DRESSING CHANGED TO RIGHT GROIN WITH NEW [place] DRESSING IN DR LUNA'S PRESENCE. SHOWED DR PT'S QT INTERVAL AND HE STATES IT IS LONG DUE TO PT'S BBB. INFORMED PT AND HER THAT SHE WILL RESTART COUMADIN AND BEGIN ASPIRIN AT HOME AND ARRANGE FOLLOW UP FOR TAVR. PT'S WAS GOING OVER TO DR HARVEY'S OFFICE TO SEE IF HE CAN REACH OUT TO [place] SO THAT PT CAN GET PROCEDURE DONE SOONER. PT AMBULATED IN [place], 80 FEET. GROIN SITE CHECKED AFTER WALK WITH NO NEW BLEEDING. BRUISING NOTED THAT WAS ALSO NOTED BY DR LUNA. PT UPRIGHT IN CHAIR AT THIS TIME. CALL LIGHT IN REACH.
[2022-07-13 11:19] LABS: BASOPHILS ABSOLUTE AUTO 0.02 K/mm3 (0.00-0.23); BASOPHILS PERCENT AUTO 0 % (0-2); EOSINOPHILS ABSOLUTE AUTO 0.01 K/mm3 (0.00-0.68); EOSINOPHILS PERCENT AUTO 0 % (0-6); Hematocrit 31.3 % (33.0-51.0); Hemoglobin 11.2 g/dL (11.5-16.0); IMMATURE GRAN ABSOLUTE AUTO 0.02 K/mm3 (0.00-0.10); IMMATURE GRAN PERCENT AUTO 0 % (0-1); LYMPHOCYTES ABSOLUTE AUTO 0.83 K/mm3 (0.84-5.20); LYMPHOCYTES PERCENT AUTO 13 % (21-46); MONOCYTES ABSOLUTE AUTO 0.71 K/mm3 (0.16-1.47); MONOCYTES PERCENT AUTO 11 % (4-13); Mean Corpuscular HGB 39.4 pg (26.0-34.0); Mean Corpuscular HGB Conc 35.8 g/dL (31.5-36.5); Mean Corpuscular Volume 110 fL (80-100); NEUTROPHILS ABSOLUTE AUTO 4.96 K/mm3 (1.96-9.15); NEUTROPHILS PERCENT AUTO 76 % (41-73); Platelet Count 195 K/mm3 (150-400); RDW Coefficient Variation 13.2 % (11.7-14.2); Red Blood Cell Count 2.84 M/mm3 (3.80-5.20); White Blood Cell Count 6.55 K/mm3 (4.00-11.30)
[2022-07-13] MEDS ORDERED: ASPI81CH PO (14:09)
[2022-07-13] MEDS ORDERED: ATOR40TA PO (14:09)
[2022-07-13] MEDS ORDERED: Lisinopril2.5 MG PO (14:10)
--- NOTE | 2022-07-13 14:26 | NUR ---
PT'S ASKED STAFF TO CALL DR HARVEY'S OFFICE TO DETERMINE IF HOSPITAL TO HOSPITAL TRANSFER CAN OCCUR. CALLED AND LEFT MESSAGE FOR MIO, WHICH IS WHO PT'S SPOKE WITH. PT AND AWARE THAT WE ARE AWAITING PHONE CALL
--- NOTE | 2022-07-13 15:30 | NUR ---
PT WAS GIVEN INSTRUCTIONS REGARDING SITE CARE, FOLLOW UP APPOINTMENTS, AND MEDICATION PRECAUTIONS. REVIEWED PRECAUTIONS WITH COUMADIN AND DISCUSSED WHAT TO DO IF GROIN SITE STARTS BLEEDING OR SWELLING. IVS REMOVED WNL. DENIED FURTHER QUESTIONS OR CONCERNS, ESCORTED OUT VIA WHEEL CHAIR BY HOSPITAL STAFF.
== END 2022-07-13 15:35 | disposition home or self-care (01) | DRG 251 ==
LOC: ER 20:24 → ICUW 20:57 → ICUE 23:00
PROVIDERS: Physician Assistant; Student in an Organized Health Care Education/Training Program; ADMIT Internal Medicine Cardiovascular Disease
PROC: 02703ZZ Dilation of Coronary Artery, One Artery, Percutaneous Approach (ICD-10-PCS; principal; 2022-07-12)
PROC: 02C03ZZ Extirpation of Matter from Coronary Artery, One Artery, Percutaneous Approach (ICD-10-PCS; 2022-07-12)
PROC: B41J1ZZ Fluoroscopy of Other Lower Arteries using Low Osmolar Contrast (ICD-10-PCS; 2022-07-12)
PROC: B2111ZZ Fluoroscopy of Multiple Coronary Arteries using Low Osmolar Contrast (ICD-10-PCS; 2022-07-12)
DX: I21.09 ST elevation (STEMI) myocardial infarction involving other coronary artery of anterior wall (principal); I48.91 Unspecified atrial fibrillation; I35.0 Nonrheumatic aortic (valve) stenosis; E03.9 Hypothyroidism, unspecified; I44.7 Left bundle-branch block, unspecified; Z88.8 Allergy status to other drugs, medicaments and biological substances; Z79.899 Other long term (current) drug therapy; Z79.01 Long term (current) use of anticoagulants; Z86.79 Personal history of other diseases of the circulatory system; Z98.890 Other specified postprocedural states; Z90.49 Acquired absence of other specified parts of digestive tract; Z90.710 Acquired absence of both cervix and uterus; Z87.891 Personal history of nicotine dependence; Z95.2 Presence of prosthetic heart valve
CPT/HCPCS: 36415; 76937; 80047; 80048; 80053; 80061; 82550; 82553; 83036; 84484; 85014; 85025; 85347; 85610; 92920; 92941; 93005; 93010; 93454; 99152; 99153; 99285-25; A9270; C1725; C1757; C1760; C1769; C1887; C1894; C8929; J1644; J2250; J2405; J3010; J3246; J7030; J7040; Q9957; Q9967

== ENCOUNTER → 2022-08-23 | Outpatient (CLI) | payer MEDICARE ==
[~2022-08-23] MED LIST changes: +ASPI81CH PO; +Lisinopril2.5 MG PO
== END | disposition home or self-care (01) ==
LOC: LAB SHORT 14:21 → LAB 14:21
DX: R30.0 Dysuria (principal)
CPT/HCPCS: 87077; 87086; 87186

== ENCOUNTER 2022-11-08 12:34 | Observation (INO) | payer MEDICARE, OTHER ==
[~2022-11-08] VITALS: Ht 154.9 cm; Wt 82.8 kg
[2022-11-08 14:32] LABS: BASOPHILS ABSOLUTE AUTO 0.04 K/mm3 (0.00-0.23); BASOPHILS PERCENT AUTO 1 % (0-2); EOSINOPHILS ABSOLUTE AUTO 0.09 K/mm3 (0.00-0.68); EOSINOPHILS PERCENT AUTO 2 % (0-6); Hematocrit 32.7 % (33.0-51.0); Hemoglobin 10.4 g/dL (11.5-16.0); IMMATURE GRAN ABSOLUTE AUTO 0.01 K/mm3 (0.00-0.10); IMMATURE GRAN PERCENT AUTO 0 % (0-1); LYMPHOCYTES ABSOLUTE AUTO 0.89 K/mm3 (0.84-5.20); LYMPHOCYTES PERCENT AUTO 19 % (21-46); MONOCYTES ABSOLUTE AUTO 0.46 K/mm3 (0.16-1.47); MONOCYTES PERCENT AUTO 10 % (4-13); Mean Corpuscular HGB 35.1 pg (26.0-34.0); Mean Corpuscular HGB Conc 31.8 g/dL (31.5-36.5); Mean Corpuscular Volume 111 fL (80-100); Mean Platelet Volume 9.5 fL (9.1-12.4); NEUTROPHILS ABSOLUTE AUTO 3.12 K/mm3 (1.96-9.15); NEUTROPHILS PERCENT AUTO 68 % (41-73); Platelet Count 199 K/mm3 (150-400); RDW Coefficient Variation 15.5 % (11.7-14.2); RDW Standard Deviation 63.2 fL (35.1-46.3); Red Blood Cell Count 2.96 M/mm3 (3.80-5.20); White Blood Cell Count 4.61 K/mm3 (4.00-11.30)
[2022-11-08 14:51] LABS: Albumin, Blood 3.9 g/dL (3.4-5.0); Albumin/Globulin Ratio 1.2 (0.8-1.8); Bilirubin, Total 1.3 mg/dL (0.1-1.0); Bun/Creatinine Ratio 18.7 (12.0-20.0); Calcium, Blood 9.7 mg/dL (8.5-10.1); Creatinine, Blood 1.07 mg/dL (0.40-1.00); Globulin, Blood 3.3 g/dL (2.2-4.0); Potassium, Blood 3.9 mmol/L (3.5-5.5); Total Protein, Blood 7.2 g/dL (6.4-8.2)
[2022-11-08 14:56] LABS: International Normalized Ratio 2.35; Prothrombin Time Results 23.3 Sec (9.7-11.5)
[2022-11-08] MEDS ORDERED: FURO20 (20:15)
--- NOTE | 2022-11-09 04:08 | NUR ---
[address] AGUIRA RE: CALL FROM [employer] MONITOR- MONITOR SHOWS PT ST ELEVATION- PT REPORTS CP 1-2 WHICH IS DECREASED AND THE LEAST PAIN SINCE THE BEGINNING OF THIS EPISODE OF CHEST PAIN- INFORMED DR. AGUIAR THAT PT HOME METOPROLOL IS 25MG BID- IT WAS NOT DOCUMENTED CORRECTLY IN SYSTEM - OK TO GIVE THE METOPROLOL 50MG- PT ORDERED FOR NPO - H&P SAYS CARDIAC DIET- OK TO FEED AND MAKE NPO AT MIDNIGHT 2129 DR. AGUIAR FOLLOWED UP AND COMPARED EKGS - NO NEW ORDERS
[2022-11-09 05:06] LABS: BASOPHILS ABSOLUTE AUTO 0.04 K/mm3 (0.00-0.23); BASOPHILS PERCENT AUTO 1 % (0-2); EOSINOPHILS ABSOLUTE AUTO 0.13 K/mm3 (0.00-0.68); EOSINOPHILS PERCENT AUTO 3 % (0-6); Hematocrit 27.8 % (33.0-51.0); Hemoglobin 9.5 g/dL (11.5-16.0); IMMATURE GRAN ABSOLUTE AUTO 0.01 K/mm3 (0.00-0.10); IMMATURE GRAN PERCENT AUTO 0 % (0-1); LYMPHOCYTES ABSOLUTE AUTO 1.07 K/mm3 (0.84-5.20); LYMPHOCYTES PERCENT AUTO 27 % (21-46); MONOCYTES ABSOLUTE AUTO 0.49 K/mm3 (0.16-1.47); MONOCYTES PERCENT AUTO 12 % (4-13); Mean Corpuscular HGB 37.5 pg (26.0-34.0); Mean Corpuscular HGB Conc 34.2 g/dL (31.5-36.5); Mean Corpuscular Volume 110 fL (80-100); Mean Platelet Volume 9.5 fL (9.1-12.4); NEUTROPHILS ABSOLUTE AUTO 2.26 K/mm3 (1.96-9.15); NEUTROPHILS PERCENT AUTO 56 % (41-73); Platelet Count 171 K/mm3 (150-400); RDW Coefficient Variation 15.6 % (11.7-14.2); RDW Standard Deviation 61.8 fL (35.1-46.3); Red Blood Cell Count 2.53 M/mm3 (3.80-5.20)
[2022-11-09 05:29] LABS: Albumin, Blood 3.3 g/dL (3.4-5.0); Albumin/Globulin Ratio 1.1 (0.8-1.8); Bilirubin, Total 1.5 mg/dL (0.1-1.0); Calcium, Blood 9.3 mg/dL (8.5-10.1); Creatinine, Blood 1.05 mg/dL (0.40-1.00); Globulin, Blood 2.9 g/dL (2.2-4.0); Potassium, Blood 3.8 mmol/L (3.5-5.5); Total Protein, Blood 6.2 g/dL (6.4-8.2)
[2022-11-09 05:36] LABS: International Normalized Ratio 1.93; Prothrombin Time Results 19.4 Sec (9.7-11.5)
--- NOTE | 2022-11-09 07:29 | NUR ---
SHIFT SUMMARY PT A&O X 4- PT USED CALL LIGHT APPROPIATELY - PT REPORTS CP AT 1-2 - PER PT PAIN IS TOLERABLE AND LOWEST IT HAS BEEN- PT HAS SCDS IN PLACE= HEPARIN DRIP INFUSING THIS AM- BED LOW POSITION, CALL LIGHT WITHIN REACH, REPORT TO NICK WILEY
--- NOTE | 2022-11-09 14:07 | NUR ---
Heparin dose changed to 14uts/kg/hr -17.4 ml/hr per pharmacy orders.
[2022-11-09] MEDS ORDERED: NITR.4SL SL (15:45)
--- NOTE | 2022-11-09 17:30 | NUR ---
Pt discharge and stated she was ready to leave and no longer waiting. Discharge instructions given and made physician aware. Pt discharge home with her at bedside.
== END 2022-11-09 17:30 | disposition home or self-care (01) ==
LOC: ER 12:34 → MEDS 12:35
PROVIDERS: Physician Assistant; ADMIT Internal Medicine
DX: I21.4 Non-ST elevation (NSTEMI) myocardial infarction (principal); I48.91 Unspecified atrial fibrillation; Z95.828 Presence of other vascular implants and grafts; E03.9 Hypothyroidism, unspecified; I50.9 Heart failure, unspecified; Z88.8 Allergy status to other drugs, medicaments and biological substances; Z87.891 Personal history of nicotine dependence
CPT/HCPCS: 36415; 71046; 80053; 82947; 83690; 83880; 84484; 85025; 85610; 85730; 93005; 93010; 93308; 93321; 96374; 99285-25; A9270; G0378; J1644

== ENCOUNTER 2024-05-08 19:03 | Emergency (ER) | payer MEDICARE, OTHER ==
[~2024-05-08] VITALS: Ht 162.6 cm; Wt 77.6 kg
[~2024-05-08 19:03] MED LIST changes: +FURO20; +NITR.4SL SL
[2024-05-08 20:40] LABS: BASOPHILS ABSOLUTE AUTO 0.03 K/mm3 (0.00-0.23); BASOPHILS PERCENT AUTO 1 % (0-2); EOSINOPHILS ABSOLUTE AUTO 0.11 K/mm3 (0.00-0.68); EOSINOPHILS PERCENT AUTO 3 % (0-6); Hematocrit 25.7 % (33.0-51.0); Hemoglobin 7.9 g/dL (11.5-16.0); IMMATURE GRAN ABSOLUTE AUTO 0.01 K/mm3 (0.00-0.10); IMMATURE GRAN PERCENT AUTO 0 % (0-1); LYMPHOCYTES ABSOLUTE AUTO 0.88 K/mm3 (0.84-5.20); LYMPHOCYTES PERCENT AUTO 20 % (21-46); MONOCYTES ABSOLUTE AUTO 0.79 K/mm3 (0.16-1.47); MONOCYTES PERCENT AUTO 18 % (4-13); Mean Corpuscular HGB 33.5 pg (26.0-34.0); Mean Corpuscular HGB Conc 30.7 g/dL (31.5-36.5); Mean Corpuscular Volume 109 fL (80-100); Mean Platelet Volume 9.3 fL (9.1-12.4); NEUTROPHILS ABSOLUTE AUTO 2.56 K/mm3 (1.96-9.15); NEUTROPHILS PERCENT AUTO 59 % (41-73); Platelet Count 200 K/mm3 (150-400); RDW Coefficient Variation 13.7 % (11.7-14.2); RDW Standard Deviation 54.4 fL (35.1-46.3); Red Blood Cell Count 2.36 M/mm3 (3.80-5.20); White Blood Cell Count 4.38 K/mm3 (4.00-11.30)
[2024-05-08 20:56] LABS: International Normalized Ratio 2.75; Prothrombin Time Results 27.3 Sec (9.7-11.5)
[2024-05-08 20:58] LABS: Percent Saturation 8.2 % (15.0-50.0)
[2024-05-08 20:59] LABS: Albumin, Blood 3.5 g/dL (3.4-5.0); Albumin/Globulin Ratio 0.9 (0.8-1.8); Bun/Creatinine Ratio 24.6 (12.0-20.0); Calcium, Blood 8.8 mg/dL (8.5-10.1); Creatinine, Blood 1.71 mg/dL (0.40-1.00); Globulin, Blood 3.8 g/dL (2.2-4.0); Potassium, Blood 4.8 mmol/L (3.5-5.5); Total Protein, Blood 7.3 g/dL (6.4-8.2)
[2024-05-08 22:41] VITALS: BP 130/56
[2024-05-08] MEDS ORDERED: FERSU300 PO (22:44)
== END 2024-05-08 22:59 | disposition home or self-care (01) ==
LOC: ER 19:03
PROVIDERS: Physician Assistant
DX: D64.9 Anemia, unspecified (principal); Z87.891 Personal history of nicotine dependence; Z79.82 Long term (current) use of aspirin; Z79.01 Long term (current) use of anticoagulants; Z79.899 Other long term (current) drug therapy; Z88.8 Allergy status to other drugs, medicaments and biological substances; E03.9 Hypothyroidism, unspecified; R53.83 Other fatigue
CPT/HCPCS: 36415; 80053; 82306; 82607; 82746; 83540; 83550; 84439; 84443; 84480; 85025; 85610; 85730; 99283

== ENCOUNTER → 2024-05-29 | Outpatient (CLI) | payer MEDICARE, OTHER ==
[~2024-05-29] MED LIST changes: +FERSU300 PO
[2024-05-29 13:39] LABS: BASOPHILS ABSOLUTE AUTO 0.02 K/mm3 (0.00-0.23); BASOPHILS PERCENT AUTO 1 % (0-2); EOSINOPHILS ABSOLUTE AUTO 0.08 K/mm3 (0.00-0.68); EOSINOPHILS PERCENT AUTO 2 % (0-6); Hematocrit 26.4 % (33.0-51.0); Hemoglobin 8.3 g/dL (11.5-16.0); IMMATURE GRAN ABSOLUTE AUTO 0.01 K/mm3 (0.00-0.10); IMMATURE GRAN PERCENT AUTO 0 % (0-1); LYMPHOCYTES ABSOLUTE AUTO 0.65 K/mm3 (0.84-5.20); LYMPHOCYTES PERCENT AUTO 17 % (21-46); MONOCYTES ABSOLUTE AUTO 0.55 K/mm3 (0.16-1.47); MONOCYTES PERCENT AUTO 15 % (4-13); Mean Corpuscular HGB 35.2 pg (26.0-34.0); Mean Corpuscular HGB Conc 31.4 g/dL (31.5-36.5); Mean Corpuscular Volume 112 fL (80-100); Mean Platelet Volume 9.2 fL (9.1-12.4); NEUTROPHILS ABSOLUTE AUTO 2.46 K/mm3 (1.96-9.15); NEUTROPHILS PERCENT AUTO 65 % (41-73); Platelet Count 177 K/mm3 (150-400); RDW Coefficient Variation 17.3 % (11.7-14.2); RDW Standard Deviation 70.7 fL (35.1-46.3); Red Blood Cell Count 2.36 M/mm3 (3.80-5.20); White Blood Cell Count 3.77 K/mm3 (4.00-11.30)
[2024-05-29 13:48] LABS: Albumin, Blood 3.3 g/dL (3.4-5.0); Albumin/Globulin Ratio 0.8 (0.8-1.8); Bilirubin, Total 1.2 mg/dL (0.1-1.0); Bun/Creatinine Ratio 18.2 (12.0-20.0); Calcium, Blood 9.4 mg/dL (8.5-10.1); Creatinine, Blood 1.65 mg/dL (0.40-1.00); Globulin, Blood 3.9 g/dL (2.2-4.0); Potassium, Blood 4.1 mmol/L (3.5-5.5); Total Protein, Blood 7.2 g/dL (6.4-8.2)
== END ==
LOC: LAB SHORT 13:34
PROVIDERS: Chiropractor
DX: R10.9 Unspecified abdominal pain (principal); D75.89 Other specified diseases of blood and blood-forming organs
CPT/HCPCS: 80053; 82607; 82746; 85025

== ENCOUNTER → 2024-08-05 | Outpatient (CLI) | payer MEDICARE, OTHER ==
[2024-08-05 16:00] LABS: Creatinine Urine 47.4 mg/dL (27.00-270.00); Microalbumin, Urine Quant. 8.36 mg/L (0.000-20.000); Protein, Urine Quantitative 5.6 mg/dL (0.0-11.9)
== END | disposition home or self-care (01) ==
LOC: LAB SHORT 13:56 → LAB 13:56 → LAB FUT 07-31 14:10
PROVIDERS: Internal Medicine Nephrology
DX: N18.30 Chronic kidney disease, stage 3 unspecified (principal); N25.81 Secondary hyperparathyroidism of renal origin; E55.9 Vitamin D deficiency, unspecified; R76.9 Abnormal immunological finding in serum, unspecified; R94.5 Abnormal results of liver function studies; D51.8 Other vitamin B12 deficiency anemias; D52.8 Other folate deficiency anemias; D50.9 Iron deficiency anemia, unspecified; D63.1 Anemia in chronic kidney disease
CPT/HCPCS: 81050; 82043; 82570; 84156